=== PATIENT | female | born 1995 | race Caucasian/White ===

== ENCOUNTER 2016-12-20 02:47 | Emergency (ER) | payer MEDICAID ==
[2016-12-20] MEDS ORDERED: PRENATAL TABLE1 EAC6 PO (02:59)
[2016-12-20] MEDS ORDERED: ZOFRAN ODT4 MG PO (03:17)
[2016-12-20] MEDS ORDERED: ACID REDUCER75 M1 PO (03:17)
== END 2016-12-20 03:25 ==
LOC: EDMED 02:47
DX: K29.70 Gastritis, unspecified, without bleeding (principal)

== ENCOUNTER 2017-03-09 20:36 | Observation (INO) | payer MEDICAID ==
[~2017-03-09 20:36] MED LIST: ACID REDUCER75 M1 PO; PRENATAL TABLE1 EAC6 PO; ZOFRAN ODT4 MG PO
== END 2017-03-09 21:35 ==
LOC: LDR 20:36
PROVIDERS: ADMIT Obstetrics & Gynecology
DX: O36.8120 Decreased fetal movements, second trimester, not applicable or unspecified (principal); Z3A.21 21 weeks gestation of pregnancy